=== PATIENT | female | born 1985 | race American Indian/Alaskan Native ===

== ENCOUNTER 2017-08-10 22:20 | Emergency (ER) | payer MEDICAID ==
[2017-08-10] MEDS ORDERED: TYLENOL ONE (22:46)
[2017-08-10] MEDS ORDERED: TYLENOL PO ONE (22:50)
[2017-08-10 23:24] LABS: Basophils % (Auto) 0.4 % (0.0-1.8); Eosinophils % (Auto) 1.6 % (0.0-4.3); Hematocrit 36.5 % (30.3-42.9); Hemoglobin 12.5 gm/dl (10.1-14.3); Mean Corpuscular HGB Conc 34 % (30-34); Mean Corpuscular Hemoglobin 30 pg (28-32); Mean Corpuscular Volume 88 fl (79-97); Platelet Count 266 K/mm3 (140-440); Red Blood Count 4.13 M/mm3 (3.65-5.03); Red Cell Distribution Width 13.3 % (13.2-15.2); White Blood Count 13.8 K/mm3 (4.5-11.0)
--- NOTE | 2017-08-11 01:48 | Emergency Department Report ---
HPI - General Chief Complaint: Vaginal Bleeding Time Seen by Provider: 08/11/17 01:17 - HPI HPI: This is a 32 year-old female presents the emergency department via EMS from home with complaint of lower abdominal pain and vaginal bleeding while . The patient says she started bleeding about 9:30 PM this evening and went through the panty liner of the underwear and then filled one pad. She denies any nausea, vomiting, fever, dysuria or vaginal bleeding. Her INTELLIGENCE ANALYST is Dr. Mcknight at [facility]. With this she is with one previous elective that she says she was recommended to get by her OB secondary to the fact that that was making her "sick." She has a history of polycystic ovarian syndrome, IBS, anemia. She has not taken anything for her symptoms prior to presentation. No recent travel or sick contacts at home. ED Past Medical Hx - Past Medical History Previous Medical History?: Yes Hx Renal Disease: Yes Hx Psychiatric Treatment: Yes (Depression) Additional medical history: polycystic ovarian syndrome, IBSC, anemia - Surgical History Past Surgical History?: Yes Additional Surgical History: D&C, colonoscopy, endoscopy - Social History Smoking Status: Former Smoker Substance Use Type: None - Medications Home Medications: Home Medications Medication Instructions Recorded Confirmed Last Taken Type Vit No.130/Iron/FA 1 each PO QDAY #30 tablet 08/11/17 Unknown Rx [ Tablet] ED Review of Systems ROS: Stated complaint: VAGINAL BLEEDING Other details as noted in HPI Comment: All other systems reviewed and negative Constitutional: denies: chills, fever Eyes: denies: eye pain, eye discharge, vision change ENT: denies: ear pain, throat pain Respiratory: denies: cough, shortness of breath, wheezing Cardiovascular: denies: chest pain, palpitations Gastrointestinal: abdominal pain. denies: nausea, diarrhea Genitourinary: other (vaginal bleeding). denies: urgency, dysuria, discharge Musculoskeletal: denies: back pain, joint swelling, arthralgia Skin: denies: rash, lesions Neurological: denies: headache, weakness, paresthesias Physical Exam - Physical Exam Vital Signs: Vital Signs 08/10/17 08/10/17 22:26 22:33 Temperature 98.8 F 98.8 F Pulse Rate 102 H 98 H Respiratory 20 20 Rate Blood Pressure 111/64 111/64 O2 Sat by Pulse 100 100 Oximetry Physical Exam: GENERAL: The patient is well-developed well-nourished. HENT: Normocephalic. Atraumatic. Patient has moist mucous membranes. EYES: Extraocular motions are intact. Pupils equal reactive to light bilaterally. NECK: Supple. Trachea is midline. CHEST/LUNGS: Clear to auscultation. There is no respiratory distress noted. HEART/CARDIOVASCULAR: Regular. There is no tachycardia. There is no gallop rub or murmur. ABDOMEN: Abdomen is soft. Unable to reproduce lower abdominal and/or pelvic discomfort to palpation. No guarding or rebound tenderness. No peritoneal signs. Patient has normal bowel sounds. There is no abdominal distention. SKIN: There is no rash. There is no edema. There is no diaphoresis. NEURO: The patient is awake, alert, and oriented. The patient is cooperative. The patient has no focal neurologic deficits. The patient has normal speech. MUSCULOSKELETAL: There is no tenderness or deformity. There is no limitation range of motion. There is no evidence of acute injury. ED Course Vital Signs 08/10/17 08/10/17 22:26 22:33 Temperature 98.8 F 98.8 F Pulse Rate 102 H 98 H Respiratory 20 20 Rate Blood Pressure 111/64 111/64 O2 Sat by Pulse 100 100 Oximetry ED Medical Decision Making - Lab Data Result diagrams: 08/10/17 22:46 08/11/17 02:01 - Radiology Data Radiology results: report reviewed EXAM: US OB T lt; = 14 WEEKS FETUS HISTORY: preg, bleeding COMPARISON: None available. TECHNIQUE: Several real-time grayscale and color Doppler images were obtained. FINDINGS: The uterus measures 11.4 x 8.6 x 2.7 centimeters. The cervix is closed and measures 3.2 centimeters in length. The ovaries are not visualized. No adnexal masses are demonstrated. Single live IUP. Estimated gestational age 13 weeks 0 days. Estimated delivery date February 16, 2018. heart rate 149 beats per minute. position variable. Placenta location anterior. No placenta previa demonstrated. Limited evaluation of structures due to early gestational age. No gross abnormality demonstrated. IMPRESSION: Single live IUP. Estimated gestational age 13 weeks 0 days. No gross or placental abnormality demonstrated at this time. - Medical Decision Making This is a 32-year-old female presents with some vaginal bleeding and lower abdominal and pelvic discomfort that started this evening, while . Labs are mostly unremarkable. Ultrasound shows a live intrauterine at 13 weeks. She was given some Tylenol for discomfort. Vital signs stable including being afebrile. We discussed the diagnosis of a threatened miscarriage but she understands that the ultrasound shows a live intrauterine at this time. She has good follow-up with INTELLIGENCE ANALYST. I wrote for vitamins. She will use Tylenol as necessary for discomfort. She will do pelvic rest and limit exertion. She will return to the ER with any worsening of her symptoms or any acute distress. - Differential Diagnosis , threatened miscarriage, spontaneous miscarriage, fibroids Critical Care Time: No Critical care attestation.: If time is entered above; I have spent that time in minutes in the direct care of this critically ill patient, excluding procedure time. ED Disposition Clinical Impression: Threatened Qualifiers: Weeks of gestation: 13 weeks Qualified Code(s): Z3A.13 - 13 weeks gestation of Abdominal pain Qualifiers: Abdominal location: lower abdomen, unspecified Qualified Code(s): R10.30 - Lower abdominal pain, unspecified Disposition: DC-01 TO HOME OR SELFCARE Is pt being admited?: No Condition: Stable Instructions: Threatened Miscarriage (ED), (ED), Abdominal Pain (ED) Additional Instructions: Please follow-up with your INTELLIGENCE ANALYST in the next few days without fail. Return to the emergency Department with any worsening of your vaginal bleeding, abdominal pain, or any acute distress. You can take Tylenol every 4 hours, using weight- based dosing, as needed for fever or discomfort. Prescriptions: Vit No.130/Iron/FA [ Tablet] 1 each PO QDAY #30 tablet Referrals: PRIMARY CAREMD [Primary Care Provider] - CRISTOPHER Forms: Work/School Release Form(ED) Time of Disposition: 02:53
[2017-08-11 02:31] LABS: Anion Gap 24 mmol/L; BUN/Creatinine Ratio 23; Blood Urea Nitrogen 9 mg/dL (7-17); Calcium 9.5 mg/dL (8.4-10.2); Carbon Dioxide 17 mmol/L (22-30); Glucose 81 mg/dL (65-100); Potassium 3.8 mmol/L (3.6-5.0); Sodium 137 mmol/L (137-145)
--- NOTE | 2017-08-11 02:35 | Ultrasound Report ---
FINAL REPORT EXAM: US OB \T\lt; = 14 WEEKS FETUS HISTORY: preg, bleeding COMPARISON: None available. TECHNIQUE: Several real-time grayscale and color Doppler images were obtained. FINDINGS: The uterus measures 11.4 x 8.6 x 2.7 centimeters. The cervix is closed and measures 3.2 centimeters in length. The ovaries are not visualized. No adnexal masses are demonstrated. Single live IUP. Estimated gestational age 13 weeks 0 days. Estimated delivery date February 16, 2018. heart rate 149 beats per minute. position variable. Placenta location anterior. No placenta previa demonstrated. Limited evaluation of structures due to early gestational age. No gross abnormality demonstrated. IMPRESSION: Single live IUP. Estimated gestational age 13 weeks 0 days. No gross or placental abnormality demonstrated at this time.
[2017-08-11 02:50] VITALS: BP 91/53
== END 2017-08-11 03:20 | disposition home or self-care (01) ==
LOC: ED 22:20
DX: O20.0 Threatened abortion (principal); Z3A.13 13 weeks gestation of pregnancy; R10.30 Lower abdominal pain, unspecified
CPT/HCPCS: 36415; 76801; 80048; 84702; 85025; 86850; 86900; 86901